=== PATIENT | female | born 2000 | race Caucasian/White ===

== ENCOUNTER 2019-03-16 09:17 | Emergency (ER) | payer MEDICAID ==
[~2019-03-16] VITALS: Ht 160 cm; Wt 61.7 kg
[2019-03-16 09:45] VITALS: Ht 160 cm; Wt 61.7 kg
[2019-03-16 12:11] LABS: BASOPHIL % 0.5 % (0-2); PLATELET COUNT 291 x10^3mcL (130-400); RED CELL DISTRIBUTION WIDTH 14.1 % (11.5-14.5)
[2019-03-16 12:51] LABS: CALCIUM 9.2 mg/dL (8.5-10.1); CARBON DIOXIDE 23.3 mmol/L (21-32); CHLORIDE SERUM 101 mmol/L (98-107); CREATININE SERUM 0.7 mg/dL (0.6-1.0); GFR1 > 60 mL/min; GLUCOSE SERUM 93 mg/dL (74-106); POTASSIUM SERUM 3.3 mmol/L (3.5-5.1); SODIUM SERUM 137 mmol/L (136-145)
[2019-03-16 13:22] LABS: ALBUMIN 4.2 g/dL (3.4-5.0); ALKALINE PHOSPHATASE 49 U/L (46-116); ALT/SGPT 31 U/L (14-59); BILIRUBIN TOTAL 0.7 mg/dL (0.20-1.00); TOTAL PROTEIN, SERUM 7.6 g/dL (6.4-8.2)
[2019-03-16 13:25] VITALS: BP 102/57
[2019-03-16 13:31] LABS: AST/SGOT 19 U/L (15-37)
== END 2019-03-16 13:25 | disposition home or self-care (01) ==
LOC: ED 09:17
PROVIDERS: Emergency Medicine
DX: O23.40 Unspecified infection of urinary tract in pregnancy, unspecified trimester (principal); Z3A.01 Less than 8 weeks gestation of pregnancy
CPT/HCPCS: J2405; J7030